=== PATIENT | male | born 1985 | race Caucasian/White ===

== ENCOUNTER 2022-06-01 21:59 | Emergency (ER) | payer OTHER ==
[2022-06-01 22:09] VITALS: BP 103/77; PULSE 112; RESP 16; TEMP 99.1; BMI 25.1
[2022-06-01] MEDS ORDERED: ALPRAZolam 1 MG TABLET PO PRN (22:11)
[2022-06-01] MEDS ORDERED: ALPRAZolam 0.25 MG TABLET ONE (22:12)
== END 2022-06-01 22:30 | disposition home or self-care (01) ==
LOC: FER 21:59
DX: R00.2 Palpitations (principal); F41.9 Anxiety disorder, unspecified
CPT/HCPCS: 93005; 99283-25